=== PATIENT | male | born 1980 | race Caucasian/White ===

== ENCOUNTER 2021-05-31 23:21 | Emergency (ER) | payer SELFPAY ==
[~2021-05-31] VITALS: Ht 185.4 cm; Wt 81.6 kg
[2021-05-31] MEDS: LIDOCAINE 2% (UROJET) 10 ML JELLY MM ONE (05:00)
[2021-05-31] MEDS ORDERED: MISCELLANEOUS MED XX ONE (23:30)
--- NOTE | 2021-05-31 23:30 | NUR ---
Pt BIB [facility], brought straight back to room ED1A for opioid OD. Pt connected to bedside monitors and initial VS obtained. VSS, PE WNL, Pt appears grimmy and desheveled. Appears otherwise healthy.
[2021-05-31] MEDS ORDERED: NALOXONE 2 MG/2 ML SYRINGE ONE (23:38)
--- NOTE | 2021-05-31 23:38 | NUR ---
Narcan drip ordered by EDMD Dr. Hays. 250cc D5W with 2mg narcan mixxed running at 50cc/hr per EDMD. Pt VSS. 115/67, SR with PACs. 100% on 3LO2., Pt is arrousable, but mostly somnolencent.
[2021-05-31 23:44] LABS: HEMATOCRIT 39.5 % (36.7-47.1); MEAN CORPUSCULAR HEMOGLOBIN 32.4 uug (23.8-33.4); MEAN CORPUSCULAR VOLUME 95.7 fL (73.0-96.2); PLATELET COUNT (AUTO) 300 K/uL (152-348)
--- NOTE | 2021-05-31 23:45 | NUR ---
Second 18g angio inserted into Rt AC without difficulty. flowing nicely, primary line connected running 1L NS wide open.
[2021-05-31 23:49] LABS: CARBON DIOXIDE 28 mmol/L (21-32); CHLORIDE 100 mmol/L (98-107); CREATININE 1.9 mg/dL (0.6-1.3); POTASSIUM 4.4 mmol/L (3.5-5.1); UREA NITROGEN, BLOOD 24 mg/dL (7-18)
--- NOTE | 2021-05-31 23:51 | NUR ---
[facility] UNIT 9A37 SERIAL # [id number] AND [id number] AT BEDSIDE TO INTERVIEW PT.
[2021-05-31 23:53] LABS: GLUCOSE 327 mg/dL (74-106)
[2021-05-31 23:55] LABS: ALANINE AMINOTRANSFERASE 55 U/L (16-63); ALKALINE PHOSPHATASE 131 U/L (50-136); ASPARTATE AMINOTRANSFERASE 84 U/L (15-37); BILIRUBIN,DIRECT 0.1 mg/dL (0.0-0.2); BILIRUBIN,TOTAL 0.3 mg/dL (0.2-1.0); TOTAL PROTEIN, SERUM 7.2 g/dL (6.4-8.2)
[2021-05-31 23:59] LABS: ACETAMINOPHEN < 2.0 ug/mL (10-30)
[2021-06-01 00:02] LABS: THYROID STIMULATING HORMONE 4.838 mIU/mL (0.358-3.740)
--- NOTE | 2021-06-01 00:03 | NUR ---
Pt woke up irrate and belligerant, demanding the 18g EJ angio be removed immediately. I tried to talk him down, saying that we are treating him and need that IV access to run fluids on him that will make him feel better. He kept demanding the removal of the EJ, with increasing loudness and hostility. He stated several times that if the "if you don't get that sh_t off my neck, i will rip it off". I told him not to do that or else we will have to restrain him per EDMD order. Dr. Hays entered the room and began speaking with pt. Pt was still refusing to calm down and accept treatment.
[2021-06-01 00:04] LABS: ETHANOL < 3 MG/DL (0-0)
[2021-06-01] MEDS ORDERED: NALO4SPR NS (00:21)
[2021-06-01] MEDS: IV NORMAL SALINE 1000 ML BAG IV ONE (00:22)
--- NOTE | 2021-06-01 04:20 | NUR ---
Pt woke up and vomited perfusely, empting his entire stomach contents out onto the floor. Towels thrown down over vomitus. EDMD ordered compazine 10mg, however pt refused medication and said he is no longer nauseated and does not require the anti-emetic. EDMD agreed and canceled order.
[2021-06-01] MEDS ORDERED: PROCHLORPERAZINE EDISYLATE 10 MG/2 ML VIAL ONE ×2 (04:42→07:14)
[2021-06-01 04:50] LABS: *BILIRUBIN,URIN NEGATIVE (NEGATIVE); *BLOOD, URINE NEGATIVE (NEGATIVE); *CLARITY,URINE CLEAR (CLEAR); *COLOR,URINE YELLOW (YELLOW); *KETONES,URINE NEGATIVE (NEGATIVE); *UROBILINOGEN,URINE 0.2 E.U./dl (NORMAL); LEUKOCYTE ESTERASE ,URINE NEGATIVE (NEGATIVE); NITRITE, URINE NEGATIVE (NEGATIVE); PH,URINE 5.5 (5.0-8.0); UGLUCOSE TRACE (NEGATIVE)
[2021-06-01 05:09] LABS: *AMPHETAMINE, URINE POSITIVE (NEGATIVE); *CANNABINOID, URINE POSITIVE (NEGATIVE); *COCCAINE, URINE NEGATIVE (NEGATIVE); *OPIATE, URINE NEGATIVE (NEGATIVE); *PHENCYCLIDINE SCREEN,URINE NEGATIVE (NEGATIVE)
[2021-06-01 05:18] LABS: BACTERIA,URINE NONE SEEN /HPF (NONE SEEN); SQUAMOUS EPITHELIAL CELL,UR FEW /HPF (NONE SEEN)
[2021-06-01] MEDS: PROCHLORPERAZINE EDISYLATE 10 MG/2 ML VIAL IV ONE (05:26)
--- NOTE | 2021-06-01 06:19 | NUR ---
DELFINO (Dr. Hays) has prepared DC paperwork for pt's discharge. Pt asked if he would like to be DCed from ED and go home; pt states that he still feels weak and would like to rest for a little while longer. Pt allowed to go back to sleep for another hour. Pts VSS, NSR without ectopy on the monitor. Pt afebrile and denies any pain, nausea, sob, or discomfort of any kind. No s/sx of distress present.
--- NOTE | 2021-06-01 06:34 | NUR ---
Pt sleeping comfortably with audible snoring. VSS, PE WNL.
--- NOTE | 2021-06-01 07:18 | NUR ---
Pt woken up, bag lunch given, pt began eating and started throwing up again. 10mg of compazine given. Pt demanded more juice. 3 cups of OJ given. Pt given DC instruction along with DC paperwork. Pt confirmed understanding of aftercare. Pt got dressed and walked out of department, refusing to take aftercare instructions. Pt had good color and appearance. VSS, no complaints of pain, sob, or nausea. No s/sx of distess present. Pt ambulated without difficulty and with steady gait.
[2021-06-01 07:22] VITALS: BP 117/65
== END 2021-06-01 07:18 | disposition home or self-care (01) ==
LOC: EDBD 23:26 → ER 23:26
DX: T40.1X1A Poisoning by heroin, accidental (unintentional), initial encounter (principal); R11.10 Vomiting, unspecified; T40.411A Poisoning by fentanyl or fentanyl analogs, accidental (unintentional), initial encounter; Y92.410 Unspecified street and highway as the place of occurrence of the external cause; Z59.02 Unsheltered homelessness; F15.10 Other stimulant abuse, uncomplicated; R91.8 Other nonspecific abnormal finding of lung field
CPT/HCPCS: 36415; 71045; 80048; 80076; 80299; 80307; 80320; 81001; 84443; 85025; 85730; 93005; 96374; 99285; J2310; J7060; G0480; J0780